=== PATIENT | female | born 1975 | race Caucasian/White ===

== ENCOUNTER 2021-01-20 07:35 | Emergency (ER) | payer MEDICARE, MEDICAID ==
[2021-01-20 08:28] LABS: HEMOGLOBIN 13.9 gm/dl (12.3-15.3); RED BLOOD COUNT 4.94 M/UL (4.00-5.10); WHITE BLOOD COUNT 7.2 K/UL (4.5-11.0)
[2021-01-20 08:41] LABS: BUN/CREATININE RATIO 17 (0-10)
[2021-01-20] MEDS ORDERED: PYRIDIUM200 MG PO (10:25)
[2021-01-20] MEDS ORDERED: ZOFRAN4 MG PO (10:25)
[2021-01-20] MEDS ORDERED: OMNICEF 300 MG300 MG PO (10:25)
== END 2021-01-20 10:28 | disposition home or self-care (01) ==
LOC: ER1 07:35
PROVIDERS: Physician Assistant
DX: N39.0 Urinary tract infection, site not specified (principal); F17.200 Nicotine dependence, unspecified, uncomplicated; Z90.49 Acquired absence of other specified parts of digestive tract; Z88.0 Allergy status to penicillin; Z88.5 Allergy status to narcotic agent; Z88.8 Allergy status to other drugs, medicaments and biological substances; Z20.822 Contact with and (suspected) exposure to COVID-19
CPT/HCPCS: 80053; 81001; 85025; 99283; U0003